=== PATIENT | female | born 1955 | race Caucasian/White ===

== ENCOUNTER 2022-06-03 16:24 | Outpatient (CLI) | payer MEDICARE, MEDICAID | END 2022-06-03 16:25 | disposition home or self-care (01) | LOC: NAV RAD 16:24 | PROVIDERS: ATTEND Nurse Practitioner Family | DX: M54.6 Pain in thoracic spine (principal); M54.50 Low back pain, unspecified | CPT/HCPCS: 72072; 72100 ==